=== PATIENT | male | born 1975 | race Caucasian/White ===

== ENCOUNTER 2016-05-22 12:50 | Emergency (ER) | payer OTHER ==
[~2016-05-22 12:50] MED LIST: LEVOTHYROXINE100 MCG PO
--- NOTE | 2016-05-22 14:03 | DIAGNOSTIC IMAGING REPORT ---
PROCEDURE: CT ABDOMEN/PELVIS W/O CONTRAST INDICATION: Right flank pain, status post colonoscopy. Initial encounter. TECHNIQUE: Noncontrast axial images were obtained of the entire abdomen and pelvis with sagittal and coronal reformations. COMPARISON: None. FINDINGS: ABDOMEN: Lung base are clear. Heart size is normal. Liver, gallbladder, pancreas, spleen (calcified granuloma), adrenal glands and kidneys are normal. No evidence of urinary calculi or hydronephrosis. Mild gaseous distention of the colon. There is no free air. Mild atherosclerosis of the aorta. PELVIS: Normal appendix. Mildly enlarged prostate (5 cm). Normal bladder. No pelvic mass, free fluid or free air. Bones are unremarkable. IMPRESSION: 1. No evidence of renal calculi or free air 2. Results discussed with Dr. Knowles All CT scans at this facility use dose modulation, iterative reconstruction, and/or weight-based dosing when appropriate to reduce radiation dose to as low as reasonably achievable.
--- NOTE | 2016-05-22 14:12 | ED NURSING NOTES ---
Clinical Report - Nurses [facility] [address] [place] [address] 05/22/2016 12:53 Patient: MADDY LAROSE TRIAGE Triage time 12:48 May 22 2016. Chief Complaint: ABDOMINAL PAIN. Alert. No acute distress. SUZANNA COMA SCORE: Suzanna Coma Scale: 15- eyes open spontaneously (4); best verbal response- oriented x 4 (5); best motor response- obeys commands (6). --12:52 Ally Arreola R.N. 12:47 05/22/16. BP: 132/88. HR: 74. RR: 16. O2 saturation: 98%. Temp: 98.3 F. Pain level now: 08/18. --12:52 Ally Arreola R.N. Weight: 92.9 kg stated. Height/Length: 74 inches Per Patient. BMI: 26.3. --12:51 Ally Arreola R.N. Medications Levothyroxine Sodium Oral (Tablet 137 mcg) 1 tablet, daily. --12:48 Ally Arreola R.N. Allergies No Known Drug Allergy. --12:48 Ally Arreola R.N. History Arrived by EMS. Historian: patient. This started just prior to arrival. Last oral intake by patient was yesterday. Treatment DIRECTOR ENTERPRISE DATA ARCHITECTURE: None. PAST MEDICAL HX: Immunizations: up-to-date. SOCIAL HX: Smoker- current status unknown. History of occasional drug use: marijuana. No alcohol use. No recent travel. No infectious disease exposure. No known contact with a sick individual. SELF HARM ASSESSMENT: A self harm assessment was performed. The patient answered "no" to the question "Do you have thoughts of harming or killing yourself?". FALL RISK ASSESSMENT: Fall risk assessment completed. No fall risk identified. NUTRITIONAL RISK ASSESSMENT: The nutritional risk assessment revealed no deficiencies. FUNCTIONAL ASSESSMENT: Functional assessment: no impairments noted. LEARNING NEEDS ASSESSMENT: The learning needs assessment revealed no barriers. ABUSE ASSESSMENT: Abuse assessment: The patient was asked "Do you feel safe in your home?". SKIN INTEGRITY ASSESSMENT: Skin integrity risk assessment completed. No skin integrity risk identified. --12:52 Ally Arreola R.N. PROBLEMS: Hypothyroidism. Mckinney's Palsy. Nephrolithiasis. --12:49 Ally Arreola R.N. ADDITIONAL SURGERIES: Dental Work. Lithotripsy. Vasectomy. --12:49 Ally Arreola R.N. Interventions ID band on patient. To room. --12:52 Ally Arreola R.N. PHYSICAL ASSESSMENT GENERAL / NEURO / PSYCH: Alert. Oriented X 4. Appears in pain. RESPIRATORY: Respirations not labored. CVS: Capillary refill less than 2 seconds. GI / : Abdominal tenderness in the right lower quadrant. SKIN: Skin is warm and dry. --12:52 Ally Arreola R.N. NURSING PROGRESS NOTES Pulse oximeter and NIBP monitor placed on patient; monitor alarms on. Patient gowned. Head of bed elevated. Two patient identifiers checked. Call light placed in reach. Side rails up x 1. Bed placed in lowest position. Brakes of bed on. --12:53 Ally Arreola R.N. 12:53 05/22/2016 Site #1 started prior to arrival in doctor's office via IV wrist with an 20g angiocath. --12:53 Ally Arreola R.N. 12:54 05/22/2016 Started bag #1 1000 mL IV Fluids IV NS (Saline); bolus of 1000 mL over 1 hour(s) via site #1. Allergies verified and confirmed 5 rights. IV patency established. IV site checked: no pain, redness, or swelling. IV flushed thoroughly pre- and post-medication administration. --12:54 Ally Arreola R.N. 12:54 05/22/2016 Toradol IVP 30 mg given over 2 minute(s) via site #1. Allergies verified and confirmed 5 rights. IV patency established. IV site checked: no pain, redness, or swelling. IV flushed thoroughly pre- and post-medication administration. --12:54 Ally Arreola R.N. Patient returned by stretcher with [employer]. (13:16 May 22 2016). --13:16 Ally Arreola R.N. 14:15 05/22/2016 IV Fluids IV NS Discontinued: bag #1 infused. Total amount infused: 1000 mL. IV patency established. IV site checked: no pain, redness, or swelling. IV flushed thoroughly. --14:15 Ally Arreola R.N. 14:15 05/22/16. BP: 111/71. HR: 89. RR: 16. O2 saturation: 98%. Pain level now: 04/18. --14:16 Ally Arreola R.N. Patient ID band checked for patient name and birthdate: family confirmed. Instructions provided to collect clean catch urine and patient verbalized understanding. Clean catch urine collected with return of yellow-colored clear urine; sample sent to lab for urinalysis and culture. Specimen labeled in the presence of the patient. --14:16 Ally Arreola R.N. DISPOSITION / DISCHARGE 14:26 05/22/2016 Site #1 removed upon discharge. Bandaid applied. --14:26 Ally Arreola R.N. Departure time: 14:May 22 2016. Condition at departure: improved. No learning barriers present. Discharge instructions provided and reviewed with the patient. Reviewed referral to a primary care physician. Patient verbalized understanding. Written instructions provided in Vietnamese. The patient was discharged home and accompanied by inspector and tester. He left the Emergency Department ambulatory and via private vehicle. Certified Lactation Counselor driving. FALL RISK ASSESSMENT: Fall risk assessment completed. No fall risk identified. --14:27 Ally Arreola R.N. 14:15 05/22/16. BP: 111/71. HR: 86. RR: 16. O2 saturation: 98%. Pain level now: 04/18. --14:27 Ally Arreola R.N. Locked/Released at 05/22/2016 14:35 by Ally Arreola R.N.
--- NOTE | 2016-05-22 14:12 | ED CLINICAL REPORT ---
Clinical Report - Physicians/Mid Levels [facility] [address] [place] [address] 05/22/2016 12:53 Patient: MADDY LAROSE Time Seen: 12:47; initial patient contact. Arrived- By ambulance. Historian- patient. HISTORY OF PRESENT ILLNESS Chief Complaint: ABDOMINAL PAIN. At its maximum, severity described as moderate. When seen in the E.D., severity described as moderate. Modifying factors. Not worsened by anything. Not relieved by anything. This started just prior to arrival. It is described as cramping and it is described as located in the right abdomen and radiating to the groin. No nausea, loss of appetite, vomiting or diarrhea. (Pt woke up from his colonoscopy w/ extreme abd pain similar to prior kidney stones.). Similar symptoms previously: Several times. Recent medical care: The patient was seen recently in a clinic. ( See above). REVIEW OF SYSTEMS No constipation, pain with urination, urinary frequency, fever or chills. He has had difficulty with urination. All systems otherwise negative, except as recorded above. PAST HISTORY Hypothyroidism. Mckinney's Palsy. Nephrolithiasis. SURGERIES: Dental Work. Lithotripsy. Vasectomy. SOCIAL HISTORY Smoker - current status unknown. History of drug use: marijuana. No alcohol use. ADDITIONAL NOTES The nursing notes have been reviewed. PHYSICAL EXAM Vital Signs: 05/22/2016 12:47 BP: 132/88. HR: 74. RR: 16. O2 saturation: 98%. Temp: 98.3 F. Pain level now: 08/18. Have been reviewed as normal. Appearance: Alert. Oriented X3. Appears to be in pain. Eyes: Eyes normal inspection. ENT: Pharynx normal. CVS: Normal heart rate and rhythm. Heart sounds normal. Respiratory: No respiratory distress. Breath sounds normal. Abdomen: Soft. Moderate tenderness in the right side of the abdomen with guarding present. No rebound tenderness or Malave's, obturator or psoas sign present. Back: Normal inspection. No CVA tenderness. Skin: Skin warm and dry. Normal skin color. Extremities: No lower extremity edema. Neuro: Oriented X 3. LABS, X-RAYS, AND EKG Abdominal CT performed without contrast. The study was independently viewed by me, interpreted by the radiologist and discussed with the radiologist. Prior studies were not available for comparison. Interpretation time: 14:11. PROGRESS AND PROCEDURES Course of Care: Pt had marked pain relief after passing gas x 3. Disposition: Discharged home in good and improved condition. Condition: good. CLINICAL IMPRESSION Acute generalized abdominal pain. INSTRUCTIONS Drink plenty of fluids. Your Current Medications: CONTINUE TAKING THE FOLLOWING MEDICATIONS: Levothyroxine Sodium Oral : Tablet 137 mcg, 1 tablet daily. Follow-up: Follow up with your doctor as needed. Call for an appointment. Screening today revealed the patient's blood pressure to be in the pre-hypertensive range. The patient should follow up with a primary care provider for blood pressure management. (Electronically signed by Osiel Knowles Dr. 05/23/2016 21:34)
--- NOTE | 2016-05-22 14:12 | ED ORDER SUMMARY ---
..... Patient: MADDY LAROSE OrderSheet [facility] VisitID: [id number] [place] [address] 40y, M Registration Date/Time: 05/22/2016 ORDER SHEET Weight: 92.9 kg (stated) Allergies: No Known Drug Allergy GENERAL ORDERS: CT Abd/Pel wo Cont Urgent (12:48 05/22/2016 Lucía Castano) ([facility] 12:58 Delphine) (13:24 Dagmar) MEDICATION ORDERS: IV FLUIDS: IV NS : initial bolus none -, then 1000 mL/hr for X1 (NOW) (12:48 05/22/2016 uLcía Castano) (12:54 Celia Christie.N.) Toradol IV 30 mg (NOW) (12:48 05/22/2016 Lucía Castano) (12:54 Celia R.N.) ORDER SHEET NOTES: [Electronically signed by Ally Arreola R.N. (14:35 05/22/2016)] [Electronically signed by Osiel Knowles Dr. (21:34 05/23/2016)] [Electronically locked/signed by Ally Arreola R.N. (14:35 05/22/2016)]
--- NOTE | 2016-05-22 14:12 | ED CLINICAL REPORT ---
Clinical Report - Physicians/Mid Levels [facility] [address] [place] [address] 05/22/2016 12:53 Patient: MADDY LAROSE Time Seen: 12:47; initial patient contact. Arrived- By ambulance. Historian- patient. HISTORY OF PRESENT ILLNESS Chief Complaint: ABDOMINAL PAIN. At its maximum, severity described as moderate. When seen in the E.D., severity described as moderate. Modifying factors. Not worsened by anything. Not relieved by anything. This started just prior to arrival. It is described as cramping and it is described as located in the right abdomen and radiating to the groin. No nausea, loss of appetite, vomiting or diarrhea. (Pt woke up from his colonoscopy w/ extreme abd pain similar to prior kidney stones.). Similar symptoms previously: Several times. Recent medical care: The patient was seen recently in a clinic. ( See above). REVIEW OF SYSTEMS No constipation, pain with urination, urinary frequency, fever or chills. He has had difficulty with urination. All systems otherwise negative, except as recorded above. PAST HISTORY Hypothyroidism. Mckinney's Palsy. Nephrolithiasis. SURGERIES: Dental Work. Lithotripsy. Vasectomy. SOCIAL HISTORY Smoker - current status unknown. History of drug use: marijuana. No alcohol use. ADDITIONAL NOTES The nursing notes have been reviewed. PHYSICAL EXAM Vital Signs: 05/22/2016 12:47 BP: 132/88. HR: 74. RR: 16. O2 saturation: 98%. Temp: 98.3 F. Pain level now: 08/18. Have been reviewed as normal. Appearance: Alert. Oriented X3. Appears to be in pain. Eyes: Eyes normal inspection. ENT: Pharynx normal. CVS: Normal heart rate and rhythm. Heart sounds normal. Respiratory: No respiratory distress. Breath sounds normal. Abdomen: Soft. Moderate tenderness in the right side of the abdomen with guarding present. No rebound tenderness or Malave's, obturator or psoas sign present. Back: Normal inspection. No CVA tenderness. Skin: Skin warm and dry. Normal skin color. Extremities: No lower extremity edema. Neuro: Oriented X 3. LABS, X-RAYS, AND EKG Abdominal CT performed without contrast. The study was independently viewed by me, interpreted by the radiologist and discussed with the radiologist. Prior studies were not available for comparison. Interpretation time: 14:11. PROGRESS AND PROCEDURES Course of Care: Pt had marked pain relief after passing gas x 3. Disposition: Discharged home in good and improved condition. Condition: good. CLINICAL IMPRESSION Acute generalized abdominal pain. INSTRUCTIONS Drink plenty of fluids. Your Current Medications: CONTINUE TAKING THE FOLLOWING MEDICATIONS: Levothyroxine Sodium Oral : Tablet 137 mcg, 1 tablet daily. Follow-up: Follow up with your doctor as needed. Call for an appointment. Screening today revealed the patient's blood pressure to be in the pre-hypertensive range. The patient should follow up with a primary care provider for blood pressure management. (Electronically signed by Osiel Knowles Dr. 05/23/2016 21:34)
--- NOTE | 2016-05-22 14:12 | ED NURSING NOTES ---
Clinical Report - Nurses [facility] [address] [place] [address] 05/22/2016 12:53 Patient: MADDY LAROSE TRIAGE Triage time 12:48 May 22 2016. Chief Complaint: ABDOMINAL PAIN. Alert. No acute distress. SUZANNA COMA SCORE: Suzanna Coma Scale: 15- eyes open spontaneously (4); best verbal response- oriented x 4 (5); best motor response- obeys commands (6). --12:52 Ally Arreola R.N. 12:47 05/22/16. BP: 132/88. HR: 74. RR: 16. O2 saturation: 98%. Temp: 98.3 F. Pain level now: 08/18. --12:52 Ally Arreola R.N. Weight: 92.9 kg stated. Height/Length: 74 inches Per Patient. BMI: 26.3. --12:51 Ally Arreola R.N. Medications Levothyroxine Sodium Oral (Tablet 137 mcg) 1 tablet, daily. --12:48 Ally Arreola R.N. Allergies No Known Drug Allergy. --12:48 Ally Arreola R.N. History Arrived by EMS. Historian: patient. This started just prior to arrival. Last oral intake by patient was yesterday. Treatment MINISTER ASSISTANT: None. PAST MEDICAL HX: Immunizations: up-to-date. SOCIAL HX: Smoker- current status unknown. History of occasional drug use: marijuana. No alcohol use. No recent travel. No infectious disease exposure. No known contact with a sick individual. SELF HARM ASSESSMENT: A self harm assessment was performed. The patient answered "no" to the question "Do you have thoughts of harming or killing yourself?". FALL RISK ASSESSMENT: Fall risk assessment completed. No fall risk identified. NUTRITIONAL RISK ASSESSMENT: The nutritional risk assessment revealed no deficiencies. FUNCTIONAL ASSESSMENT: Functional assessment: no impairments noted. LEARNING NEEDS ASSESSMENT: The learning needs assessment revealed no barriers. ABUSE ASSESSMENT: Abuse assessment: The patient was asked "Do you feel safe in your home?". SKIN INTEGRITY ASSESSMENT: Skin integrity risk assessment completed. No skin integrity risk identified. --12:52 Ally Arreola R.N. PROBLEMS: Hypothyroidism. Mckinney's Palsy. Nephrolithiasis. --12:49 Ally Arreola R.N. ADDITIONAL SURGERIES: Dental Work. Lithotripsy. Vasectomy. --12:49 Ally Arreola R.N. Interventions ID band on patient. To room. --12:52 Ally Arreola R.N. PHYSICAL ASSESSMENT GENERAL / NEURO / PSYCH: Alert. Oriented X 4. Appears in pain. RESPIRATORY: Respirations not labored. CVS: Capillary refill less than 2 seconds. GI / : Abdominal tenderness in the right lower quadrant. SKIN: Skin is warm and dry. --12:52 Ally Arreola R.N. NURSING PROGRESS NOTES Pulse oximeter and NIBP monitor placed on patient; monitor alarms on. Patient gowned. Head of bed elevated. Two patient identifiers checked. Call light placed in reach. Side rails up x 1. Bed placed in lowest position. Brakes of bed on. --12:53 Ally Arreola R.N. 12:53 05/22/2016 Site #1 started prior to arrival in doctor's office via IV wrist with an 20g angiocath. --12:53 Ally Arreola R.N. 12:54 05/22/2016 Started bag #1 1000 mL IV Fluids IV NS (Saline); bolus of 1000 mL over 1 hour(s) via site #1. Allergies verified and confirmed 5 rights. IV patency established. IV site checked: no pain, redness, or swelling. IV flushed thoroughly pre- and post-medication administration. --12:54 Ally Arreola R.N. 12:54 05/22/2016 Toradol IVP 30 mg given over 2 minute(s) via site #1. Allergies verified and confirmed 5 rights. IV patency established. IV site checked: no pain, redness, or swelling. IV flushed thoroughly pre- and post-medication administration. --12:54 Ally Arreola R.N. Patient returned by stretcher with [employer]. (13:16 May 22 2016). --13:16 Ally Arreola R.N. 14:15 05/22/2016 IV Fluids IV NS Discontinued: bag #1 infused. Total amount infused: 1000 mL. IV patency established. IV site checked: no pain, redness, or swelling. IV flushed thoroughly. --14:15 Ally Arreola R.N. 14:15 05/22/16. BP: 111/71. HR: 89. RR: 16. O2 saturation: 98%. Pain level now: 04/18. --14:16 Ally Arreola R.N. Patient ID band checked for patient name and birthdate: family confirmed. Instructions provided to collect clean catch urine and patient verbalized understanding. Clean catch urine collected with return of yellow-colored clear urine; sample sent to lab for urinalysis and culture. Specimen labeled in the presence of the patient. --14:16 Ally Arreola R.N. DISPOSITION / DISCHARGE 14:26 05/22/2016 Site #1 removed upon discharge. Bandaid applied. --14:26 Ally Arreola R.N. Departure time: 14:May 22 2016. Condition at departure: improved. No learning barriers present. Discharge instructions provided and reviewed with the patient. Reviewed referral to a primary care physician. Patient verbalized understanding. Written instructions provided in Luxembourgish. The patient was discharged home and accompanied by technical illustrator. He left the Emergency Department ambulatory and via private vehicle. Fur Floor Worker driving. FALL RISK ASSESSMENT: Fall risk assessment completed. No fall risk identified. --14:27 Ally Arreola R.N. 14:15 05/22/16. BP: 111/71. HR: 86. RR: 16. O2 saturation: 98%. Pain level now: 04/18. --14:27 Ally Arreola R.N. Locked/Released at 05/22/2016 14:35 by Ally Arreola R.N.
--- NOTE | 2016-05-22 14:12 | ED ORDER SUMMARY ---
..... Patient: MADDY LAROSE OrderSheet [facility] VisitID: [id number] [place] [address] 40y, M Registration Date/Time: 05/22/2016 ORDER SHEET Weight: 92.9 kg (stated) Allergies: No Known Drug Allergy GENERAL ORDERS: CT Abd/Pel wo Cont Urgent (12:48 05/22/2016 Lucía Castano) ([facility] 12:58 Delphine) (13:24 Dagmar) MEDICATION ORDERS: IV FLUIDS: IV NS : initial bolus none -, then 1000 mL/hr for X1 (NOW) (12:48 05/22/2016 Lucía Castano) (12:54 Celia Christie.N.) Toradol IV 30 mg (NOW) (12:48 05/22/2016 Lucía Castano) (12:54 Celia R.N.) ORDER SHEET NOTES: [Electronically signed by Ally Arreola R.N. (14:35 05/22/2016)] [Electronically signed by Osiel Knowles Dr. (21:34 05/23/2016)] [Electronically locked/signed by Ally Arreola R.N. (14:35 05/22/2016)]
--- NOTE | 2016-05-23 21:35 | ED MAR SUMMARY ---
..... Medication Administration Record [facility] [address] [place] [address] Patient: MADDY LAROSE Visit ID: [id number] 40y, M Weight: 92.9 kg Height/Length: 74 in BMI: 26.3 ALLERGIES: No Known Drug Allergy Start 12:54 05/22/2016 Ally Arreola R.N., Stop 14:15 05/22/2016 Ally Arreola R.N. Medication Administered: IV NS (SALINE), Dose: IV Fluids, Bolus: 1000 mL over 1 hour(s), Dispensed: 1000 mL bag, Site: #1 wrist. Medication Ordered: IV NS : initial bolus none -, then 1000 mL/hr for X1 (NOW). Given 12:54 05/22/2016 Ally Arreola R.N. Medication Administered: TORADOL [IVP], Dose: 30 mg IVP over 2 minute(s), Site: #1 wrist. Medication Ordered: Toradol IV 30 mg (NOW).
--- NOTE | 2016-05-23 21:35 | ED DISCHARGE INSTRUCTIONS ---
Patient: MADDY LAROSE General Instructions [facility] VisitID: [id number] [address] [place] [address] 40y, M Registration Date/Time: 05/22/2016 Acute generalized abdominal pain. INSTRUCTIONS Drink plenty of fluids. Your Current Medications: CONTINUE TAKING THE FOLLOWING MEDICATIONS: Levothyroxine Sodium Oral : Tablet 137 mcg, 1 tablet daily. Follow-up: Follow up with your doctor as needed. Call for an appointment. Screening today revealed the patient's blood pressure to be in the pre-hypertensive range. The patient should follow up with a primary care provider for blood pressure management. (Electronically signed by Osiel Knowles Dr. 05/23/2016 21:34)
--- NOTE | 2016-05-23 21:35 | ED MAR SUMMARY ---
..... Medication Administration Record [facility] [address] [place] [address] Patient: MADDY LAROSE Visit ID: [id number] 40y, M Weight: 92.9 kg Height/Length: 74 in BMI: 26.3 ALLERGIES: No Known Drug Allergy Start 12:54 05/22/2016 Ally Arreola R.N., Stop 14:15 05/22/2016 Ally Arreola R.N. Medication Administered: IV NS (SALINE), Dose: IV Fluids, Bolus: 1000 mL over 1 hour(s), Dispensed: 1000 mL bag, Site: #1 wrist. Medication Ordered: IV NS : initial bolus none -, then 1000 mL/hr for X1 (NOW). Given 12:54 05/22/2016 Ally Arreola R.N. Medication Administered: TORADOL [IVP], Dose: 30 mg IVP over 2 minute(s), Site: #1 wrist. Medication Ordered: Toradol IV 30 mg (NOW).
--- NOTE | 2016-05-23 21:35 | ED MED RECONCILIATION SUMMARY ---
Patient: MADDY LAROSE Medication Reconciliation Report [facility] VisitID: [id number] [address] [place] [address] 40y, M Registration Date/Time: 05/22/2016 Weight: 92.9 kg Height/Length: 74 in. BMI: 26.3 ALLERGIES: No Known Drug Allergy The patient's Home Medications are listed below: CONTINUE TAKING THE FOLLOWING MEDICATIONS: Levothyroxine Sodium Oral (137 mcg) 1 tablet, daily The source(s) of the original Home Medication information: Not obtained. The following Medications were given to the patient in the Emergency Department: IV NS IV Fluids bolus 1000 mL over 1 hour(s), administered: 05/22/2016 12:54:00 PM Toradol [IVP] IVP 30 mg, administered: 05/22/2016 12:54:00 PM The following Medications were prescribed to the patient: None.
--- NOTE | 2016-05-23 21:35 | ED DISCHARGE INSTRUCTIONS ---
Patient: MADDY LAROSE General Instructions [facility] VisitID: [id number] [address] [place] [address] 40y, M Registration Date/Time: 05/22/2016 Acute generalized abdominal pain. INSTRUCTIONS Drink plenty of fluids. Your Current Medications: CONTINUE TAKING THE FOLLOWING MEDICATIONS: Levothyroxine Sodium Oral : Tablet 137 mcg, 1 tablet daily. Follow-up: Follow up with your doctor as needed. Call for an appointment. Screening today revealed the patient's blood pressure to be in the pre-hypertensive range. The patient should follow up with a primary care provider for blood pressure management. (Electronically signed by Osiel Knowles Dr. 05/23/2016 21:34)
--- NOTE | 2016-05-23 21:35 | ED MED RECONCILIATION SUMMARY ---
Patient: MADDY LAROSE Medication Reconciliation Report [facility] VisitID: [id number] [address] [place] [address] 40y, M Registration Date/Time: 05/22/2016 Weight: 92.9 kg Height/Length: 74 in. BMI: 26.3 ALLERGIES: No Known Drug Allergy The patient's Home Medications are listed below: CONTINUE TAKING THE FOLLOWING MEDICATIONS: Levothyroxine Sodium Oral (137 mcg) 1 tablet, daily The source(s) of the original Home Medication information: Not obtained. The following Medications were given to the patient in the Emergency Department: IV NS IV Fluids bolus 1000 mL over 1 hour(s), administered: 05/22/2016 12:54:00 PM Toradol [IVP] IVP 30 mg, administered: 05/22/2016 12:54:00 PM The following Medications were prescribed to the patient: None.
== END 2016-05-22 14:20 | disposition home or self-care (01) ==
LOC: ED SRH 12:50
DX: R10.84 Generalized abdominal pain (principal); E03.9 Hypothyroidism, unspecified